=== PATIENT | male | born 1990 | race Hispanic/Latino ===

== ENCOUNTER 2018-04-15 23:56 | Emergency (ER) | payer SELFPAY ==
[2018-04-16] MEDS ORDERED: TETANUS/DIPHTHERIA TOXOID [ADULT] 0.5 ML VIAL IM ONE (00:47)
[2018-04-16] MEDS ORDERED: IBUPROFEN 600 MG TABLET ONE (00:55)
[2018-04-16] MEDS ORDERED: CEPHALEXIN 500 MG CAPSULE ONE (03:33)
== END 2018-04-16 03:46 | disposition home or self-care (01) ==
LOC: EDH 23:56
DX: S61.411A Laceration without foreign body of right hand, initial encounter (principal); W22.8XXA Striking against or struck by other objects, initial encounter; Y93.89 Activity, other specified; Y92.098 Other place in other non-institutional residence as the place of occurrence of the external cause; Y99.8 Other external cause status
CPT/HCPCS: 12042; 73130; 90471; 90714